=== PATIENT | female | born 1950 | race Caucasian/White ===

== ENCOUNTER 2019-05-29 15:10 | Emergency (ER) | payer OTHER ==
[~2019-05-29] VITALS: Ht 160 cm; Wt 78.9 kg
[2019-05-29 15:27] VITALS: Ht 160 cm; Wt 78.9 kg
[2019-05-29] MEDS ORDERED: DORZOLAMIDE-TI1 EACH EACH EYE (15:29)
[2019-05-29] MEDS ORDERED: LOVASTATIN40 MG PO (15:30)
[2019-05-29] MEDS ORDERED: ALPHAGAN P 0.155 ML EACH EYE (15:30)
[2019-05-29] MEDS ORDERED: PAXIL20 MG PO (15:32)
[2019-05-29] MEDS ORDERED: UNKNOWN CHOLESTEROL (15:32)
[2019-05-29] MEDS ORDERED: OS-CAL500 MG PO (15:33)
[2019-05-29] MEDS ORDERED: VITAMIN D10000 UNI1 PO (15:33)
[2019-05-29] MEDS ORDERED: TALTZ IM (15:34)
[2019-05-29 16:03] LABS: BASOPHILS 0.2 % (0-2); EOSINOPHILS 1.3 % (0-7); HEMATOCRIT 40.5 % (36.0-48.0); IMMATURE GRANULOCYTES 0.4 % (0-5); LYMPHOCYTES 29.4 % (15-50); MCH 33.5 pg (26.0-34.0); MCHC 34.6 g/dL (31.0-37.0); MCV 96.9 fL (80.0-100.0); MEAN PLATELET VOLUME 10.9 fL (7.4-10.4); MONOCYTES 8.5 % (2-11); NEUTROPHILS 60.2 % (40-80); PLATELET COUNT 176 10x3/uL (130-400); RBC 4.18 10x6/uL (4.00-5.40); RDW 13.2 % (11.5-14.5); WBC 5.4 10x3/uL (4.8-10.8)
[2019-05-29 16:14] LABS: APPEARANCE CLEAR (CLEAR); BILIRUBIN NEGATIVE (NEGATIVE); COLOR YELLOW (YELLOW); GLUCOSE NEGATIVE (NEGATIVE); KETONE NEGATIVE (NEGATIVE); NITRITE NEGATIVE (NEGATIVE); PROTEIN NEGATIVE (NEGATIVE); UROBILINOGEN NORMAL (NORMAL)
[2019-05-29 16:21] LABS: CALC OSMOLALITY 281 mosm/kg (275-300); CALCIUM 9.4 mg/dL (8.5-10.1); CARBON DIOXIDE 31.3 mmol/L (21.0-32.0); CHLORIDE - SERUM 105 mmol/L (98-107); CREATININE - SERUM 0.7 mg/dL (0.6-1.3); GLUCOSE 114 mg/dL (74-106); POTASSIUM - SERUM 4.3 mmol/L (3.5-5.1); SODIUM 141 mmol/L (136-145); UREA NITROGEN 13 mg/dL (7-18); eGFR NON AFRICAN AMERICAN 88 mL/min (90-120)
[2019-05-29 16:32] LABS: ALBUMIN 4.1 g/dL (3.4-5.0); ALKALINE PHOSPHATASE 97 U/L (46-116); ALT (SGPT) 44 U/L (10-68); BILIRUBIN - TOTAL 0.42 mg/dL (0.2-1.3); LIPASE 170 U/L (73-393); PRO BNP 40 pg/mL (0-125); PROTEIN - SERUM 8.1 g/dL (6.4-8.2)
[2019-05-29 16:38] LABS: TROPONIN-I < 0.017 ng/mL (0.000-0.060)
[2019-05-29 17:19] LABS: UDS - AMPHET NEGATIVE QUAL (NEGATIVE); UDS - BARB NEGATIVE QUAL (NEGATIVE); UDS - BENZO NEGATIVE QUAL (NEGATIVE); UDS - COCAINE NEGATIVE QUAL (NEGATIVE); UDS - OPIATE NEGATIVE QUAL (NEGATIVE); UDS - PCP NEGATIVE QUAL (NEGATIVE); UDS - THC NEGATIVE QUAL (NEGATIVE)
[2019-05-29 18:55] VITALS: BP 122/52
[2019-07-09] MEDS ORDERED: CETIRIZINE HCL5 MG PO (12:33)
[2019-07-10 10:00] VITALS: Ht 160 cm; Wt 78.9 kg
== END 2019-05-29 18:56 | disposition home or self-care (01) ==
LOC: D.ER 15:10
PROVIDERS: Family Medicine
DX: R10.11 Right upper quadrant pain (principal)

== ENCOUNTER → 2019-06-05 08:35 | Outpatient (CLI) | payer OTHER ==
[2019-05-29 15:27] VITALS: BMI 30.8
[~2019-06-05 08:35] MED LIST: ALPHAGAN P 0.155 ML EACH EYE; CETIRIZINE HCL5 MG PO; DORZOLAMIDE-TI1 EACH EACH EYE; GEMFIBROZIL600 MG PO; LOVASTATIN40 MG PO; MEPERIDINE HCL50 MG PO; OS-CAL500 MG PO; PAXIL20 MG PO; TALTZ IM; UNKNOWN CHOLESTEROL; VITAMIN D10000 UNI1 PO
[2019-07-10 10:00] VITALS: BMI 30.8
== END | disposition home or self-care (01) ==
LOC: D.US 08:30
PROVIDERS: ATTEND Family Medicine
DX: R10.10 Upper abdominal pain, unspecified (principal)

== ENCOUNTER → 2019-06-16 08:49 | Outpatient (CLI) | payer OTHER ==
[2019-05-29 15:27] VITALS: BMI 30.8
[2019-07-10 10:00] VITALS: BMI 30.8
== END | disposition home or self-care (01) ==
LOC: D.NM 08:49
PROVIDERS: ATTEND Family Medicine
DX: R10.10 Upper abdominal pain, unspecified (principal)

== ENCOUNTER 2019-07-10 07:57 | Day surgery (SDC) | payer OTHER ==
[~2019-07-10] VITALS: Ht 160 cm; Wt 78.9 kg
[~2019-07-10 07:57] MED LIST changes: -GEMFIBROZIL600 MG PO; -MEPERIDINE HCL50 MG PO
[2019-07-10 08:32] LABS: CALC OSMOLALITY 284 mosm/kg (275-300); CALCIUM 9.5 mg/dL (8.5-10.1); CARBON DIOXIDE 29.3 mmol/L (21.0-32.0); CHLORIDE - SERUM 107 mmol/L (98-107); CREATININE - SERUM 0.7 mg/dL (0.6-1.3); GLUCOSE 159 mg/dL (74-106); POTASSIUM - SERUM 4.2 mmol/L (3.5-5.1); SODIUM 141 mmol/L (136-145); UREA NITROGEN 16 mg/dL (7-18); eGFR NON AFRICAN AMERICAN 88 mL/min (90-120)
[2019-07-10 08:43] LABS: BASOPHILS 0.2 % (0-2); EOSINOPHILS 2.9 % (0-7); HEMATOCRIT 39.4 % (36.0-48.0); HEMOGLOBIN 13.7 g/dL (12-16); IMMATURE GRANULOCYTES 0.3 % (0-5); MCHC 34.8 g/dL (31.0-37.0); MCV 94.9 fL (80.0-100.0); MEAN PLATELET VOLUME 10.8 fL (7.4-10.4); MONOCYTES 5.6 % (2-11); PLATELET COUNT 201 10x3/uL (130-400); RBC 4.15 10x6/uL (4.00-5.40); RDW 13.1 % (11.5-14.5); WBC 5.9 10x3/uL (4.8-10.8)
[2019-07-10] MEDS ORDERED: GEMFIBROZIL600 MG PO (09:42)
[2019-07-10 10:00] VITALS: BP 109/63; Ht 160 cm; Wt 78.9 kg
[2019-07-10] MEDS ORDERED: MEPERIDINE HCL50 MG PO (13:17)
--- NOTE | 2019-07-10 17:40 | NUR ---
1340 ANES AT BEDSIDE. CHANGES IN EKG FROM PREOP TO POST OP. 12 LEAD EKG ORDERED AND OBTAINED. ANES REVIEWED. NO FURTHER ORDERS RECEVIED.
--- NOTE | 2019-07-14 13:36 | OP ---
PATIENT NAME: JERAMIE OJEDA MEDICAL RECORD: [id number] :54 LOCATION:[facility]OPS ADMISSION DATE: SURGEON: IVAN SON MD DATE OF OPERATION: 07/10/2019 PREOPERATIVE DIAGNOSES: 1. Biliary dyskinesia. 2. Hypercholesterolemia. POSTOPERATIVE DIAGNOSES: 1. Biliary dyskinesia. 2. Hypercholesterolemia. PROCEDURE: Laparoscopic cholecystectomy. SURGEON: Ivan Son MD REPORT OF PROCEDURE: The patient's abdomen was prepped and draped in sterile fashion. A cutdown was made on the superior aspect of the umbilicus, 0 Vicryls were placed in the fascia bilaterally and the fascia was incised with a 15-blade. I then bluntly entered the peritoneal cavity and placed a 12-mm Mingo port. Under direct visualization, a 5 mm trocar was placed in the epigastrium and 2 more 5-mm trocars were placed in the right subcostal region. The gallbladder was grasped and elevated. The cystic artery and cystic duct were dissected free and these were clipped proximally and distally and ligated in standard fashion. The gallbladder was then taken off the liver bed using electrocautery and placed into an Endo Catch bag. The right upper quadrant was then irrigated out with normal saline and care was taken to assure there was no sign of any bleeding or bile leakage. At this point, the ports and insufflation were then removed and the gallbladder was taken out through the umbilicus. The umbilical fascia was closed with interrupted 0 Vicryls times 3. The wounds were then irrigated out with normal saline, infused with 10 mL of 0.25% Marcaine with epinephrine. The skin incisions were all closed with subcutaneous 5-0 Monocryl and dressed appropriately. COMPLICATIONS: None. CONDITION: Stable. ANESTHESIA: General endotracheal and local. BLOOD LOSS: Minimal. TRANSINT:[id number] Voice Confirmation ID: [id number] DOCUMENT ID: [id number] IVAN SON MD at 1336 CC: CARLENE OLEARY [id number] DICTATION DATE: 07/10/19 1323 HOUSE PARENT: 07/10/[address] [facility] 07/10/19 [facility] [address] [place] [id number]
== END 2019-07-10 15:50 | disposition home or self-care (01) ==
LOC: D.OPS 07:57 → D.PAN 10:45 → D.OPS 10:45 → D.PAN 11:45 → D.OPS 11:45
PROVIDERS: ATTEND Surgery
DX: K82.8 Other specified diseases of gallbladder (principal); E78.00 Pure hypercholesterolemia, unspecified; K57.90 Diverticulosis of intestine, part unspecified, without perforation or abscess without bleeding